=== PATIENT | male | born 1980 | race Two or more races ===

== ENCOUNTER 2020-09-24 09:05 | Emergency (ER) | payer BC ==
[~2020-09-24] VITALS: Ht 170.2 cm; Wt 86.2 kg
[2020-09-24 09:16] VITALS: BP 154/108
[2020-09-24] MEDS ORDERED: LIDOCAINE 1% HCL (LOCAL ANESTH.) INJ 20ML MDV IJ ONE (09:45)
[2020-09-24] MEDS ORDERED: TETANUS-DIPTH-ACEL PERTUSSIS 0.5ML SYR Tdap IM ONE (09:45)
== END 2020-09-24 10:12 | disposition home or self-care (01) ==
LOC: ER 09:05
DX: S61.412A Laceration without foreign body of left hand, initial encounter (principal); W22.8XXA Striking against or struck by other objects, initial encounter; Y93.89 Activity, other specified; Y92.89 Other specified places as the place of occurrence of the external cause; Y99.8 Other external cause status
CPT/HCPCS: 12002; 90471; 90715; 99283; J2001

== ENCOUNTER 2021-02-01 20:11 | Emergency (ER) | payer BC ==
[~2021-02-01] VITALS: Ht 170.2 cm; Wt 90.7 kg
[2021-02-01 21:59] LABS: Albumin 4.3 g/dL (3.4-5.0); Anion Gap 13 (5-15); Blood Urea Nitrogen 3 mg/dL (7-18); Calcium 8.9 mg/dL (8.5-10.1); Carbon Dioxide 24 mmol/L (21-32); Chloride 96 mmol/L (98-107); Glucose 123 mg/dL (74-106); Potassium 3.3 mmol/L (3.5-5.1); Sodium 133 mmol/L (136-145)
[2021-02-01 22:04] LABS: Alanine Aminotransferase 197 U/L (16-61); Alkaline Phosphatase 128 U/L (45-117); Aspartate Aminotransferase 246 U/L (15-37); BUN/Creatinine Ratio 4.1; Bilirubin, Total 1.2 mg/dL (0.2-1.0); GFR African American 151 mL/min; GFR Non-African American 125 mL/min; Total Protein 8.6 g/dL (6.4-8.2)
[2021-02-01 22:24] LABS: Basophils # (auto) 0.1 10 ^3/uL (0-0.2); Basophils % (auto) 1.2 % (0.0-2.0); Eosinophils # (auto) 0.1 10 ^3/uL (0-0.8); Eosinophils % (auto) 0.8 % (0.0-7.0); Hematocrit 45.4 % (41.0-53.0); Hemoglobin 16.3 g/dL (13.5-17.5); Lymphocytes # (auto) 2.3 10 ^3/uL (0.4-5.4); Lymphocytes % (auto) 33.8 % (10.0-50.0); Mean Corpuscular Hemoglobin 35.5 pg (28.0-32.0); Mean Corpuscular Hgb Conc. 35.8 g/dL (32.0-36.0); Mean Corpuscular Volume 99.2 fL (80.0-100.0); Monocytes # (auto) 0.6 10 ^3/uL (0-1.3); Neutrophils # (auto) 3.7 10 ^3/uL (1.6-8.6); Neutrophils % (auto) 55.2 % (37.0-80.0); Nucleated Red Blood Cells % 0.1 %; Platelet Count (auto) 279 10^3/uL (140-450); Red Blood Cells 4.58 10^6/uL (4.5-5.90); White Blood Cell 6.7 10^3/uL (4.4-10.8)
[2021-02-01 22:26] LABS: INR 1.08 (0.9-1.15); Partial Thromboplastin Time 27.2 sec (23.0-31.2)
[2021-02-02] MEDS ORDERED: POTASSIUM CHL 20 Meq TABLET PO ONE (02:15)
[2021-02-02 02:28] VITALS: BP 132/86
== END 2021-02-02 02:39 | disposition home or self-care (01) ==
LOC: ER 20:14
DX: R07.89 Other chest pain (principal); I10 Essential (primary) hypertension
CPT/HCPCS: 36415; 71046; 80053; 83880; 84443; 84484; 85025; 85610; 85730; 93005

== ENCOUNTER 2021-02-04 18:55 | Emergency (ER) | payer BC ==
[~2021-02-04] VITALS: Ht 170.2 cm; Wt 90.7 kg
[2021-02-04] MEDS ORDERED: THIAMINE INJ 100 MG in SODIUM CHLORIDE 0.9% 1,000 ML IV ONE (19:15)
[2021-02-04] MEDS ORDERED: LORazepam 2MG/ML-1ML VIAL IM ONE (19:15)
[2021-02-04 20:28] LABS: Basophils # (auto) 0.1 10 ^3/uL (0-0.2); Eosinophils # (auto) 0 10 ^3/uL (0-0.8); Lymphocytes # (auto) 2.3 10 ^3/uL (0.4-5.4); Mean Corpuscular Hemoglobin 36.2 pg (28.0-32.0); Mean Corpuscular Hgb Conc. 35.8 g/dL (32.0-36.0); Nucleated Red Blood Cells % 0.1 %; White Blood Cell 7.9 10^3/uL (4.4-10.8)
[2021-02-04 20:28] LABS: Urine Bacteria NONE SEEN /hpf (None Seen); Urine Blood Negative /uL (Negative); Urine Specific Gravity 1.002 (1.001-1.035); Urine WBC 1 /hpf (0 - 3)
[2021-02-04 20:30] LABS: Basophils % (auto) 1.1 % (0.0-2.0); Eosinophils % (auto) 0.6 % (0.0-7.0); Hematocrit 43.1 % (41.0-53.0); Hemoglobin 15.4 g/dL (13.5-17.5); Lymphocytes % (auto) 29.4 % (10.0-50.0); Monocytes # (auto) 1.1 10 ^3/uL (0-1.3); Monocytes % (auto) 13.8 % (0.0-12.0); Neutrophils # (auto) 4.4 10 ^3/uL (1.6-8.6); Neutrophils % (auto) 55.1 % (37.0-80.0); Platelet Count (auto) 250 10^3/uL (140-450); Red Blood Cells 4.26 10^6/uL (4.5-5.90); Red Cell Distribution Width 12.9 % (11.8-14.3)
[2021-02-04 20:42] LABS: INR 1.07 (0.9-1.15); Partial Thromboplastin Time 26.2 sec (23.0-31.2)
[2021-02-04 20:43] LABS: Calcium 9.6 mg/dL (8.5-10.1); Chloride 92 mmol/L (98-107); Sodium 131 mmol/L (136-145)
[2021-02-04 20:50] LABS: Alanine Aminotransferase 175 U/L (16-61); Albumin 4.3 g/dL (3.4-5.0); Alkaline Phosphatase 135 U/L (45-117); Amylase 50 U/L (25-115); Anion Gap 11 (5-15); Aspartate Aminotransferase 217 U/L (15-37); BUN/Creatinine Ratio 4.2; Blood Urea Nitrogen 3 mg/dL (7-18); Carbon Dioxide 28 mmol/L (21-32); GFR African American 158 mL/min; GFR Non-African American 131 mL/min; Glucose 88 mg/dL (74-106); Lipase 136 U/L (73-393); Magnesium 2.5 mg/dL (1.6-2.6)
[2021-02-04 20:55] LABS: Potassium 2.9 mmol/L (3.5-5.1)
[2021-02-04] MEDS ORDERED: ONDANSETRON HCL 4 MG/2 ML VIAL IV ONE (21:15)
[2021-02-04] MEDS ORDERED: POTASSIUM EFFERVESENT TAB 25 MEQ PO ONE (21:15)
[2021-02-04] MEDS ORDERED: POTASSIUM CHL 20MEQ/100ML 100 ML IV ONE (21:15)
[2021-02-04 23:59] VITALS: BP 139/98
== END 2021-02-05 00:07 | disposition home or self-care (01) ==
LOC: ER 18:55 → TELE 18:56 → UNDOADMIN 18:56 → ER 02-05 00:07
DX: K70.30 Alcoholic cirrhosis of liver without ascites (principal); F10.231 Alcohol dependence with withdrawal delirium; E87.6 Hypokalemia; R42 Dizziness and giddiness; Y90.8 Blood alcohol level of 240 mg/100 ml or more
CPT/HCPCS: 36415; 74176; 76705; 80053; 80320; 81001; 82150; 83690; 83735; 84484; 85025; 85610; 85730; 93005; 96365; 96366; 96368; 96372; 96375; 99285; J2060; J2405; J3411; J3480; J7030

== ENCOUNTER 2022-02-17 20:03 | Emergency (ER) | payer BC ==
[~2022-02-17] VITALS: Ht 167.6 cm; Wt 83.9 kg
[2022-02-17] MEDS ORDERED: SODIUM CHLORIDE 0.9% 1,000 ML IV ONE (20:30)
[2022-02-17] MEDS ORDERED: ONDANSETRON HCL 4 MG/2 ML VIAL IV ONE (20:45)
[2022-02-17] MEDS ORDERED: diazePAM 5 MG TAB PO ONE (20:45)
[2022-02-17 22:21] LABS: Urine Bacteria NONE SEEN /hpf (None Seen); Urine Blood Negative /uL (Negative); Urine Specific Gravity 1.002 (1.001-1.035); Urine WBC <1 /hpf (0 - 3)
[2022-02-17 22:36] LABS: Albumin 4.3 g/dL (3.4-5.0); Calcium 9.7 mg/dL (8.5-10.1); Magnesium 2.6 mg/dL (1.6-2.6); Potassium 4.4 mmol/L (3.5-5.1)
[2022-02-17 22:39] LABS: BUN/Creatinine Ratio 4.9; INR 1.16 (0.9-1.15); Partial Thromboplastin Time 28.7 sec (23.6-33.0); Total Protein 9.2 g/dL (6.4-8.2)
[2022-02-17 23:14] LABS: Basophils # (auto) 0.1 10 ^3/uL (0-0.2); Basophils % (auto) 1.1 % (0.0-2.0); Eosinophils # (auto) 0.2 10 ^3/uL (0-0.8); Eosinophils % (auto) 2.2 % (0.0-7.0); Hematocrit 50.9 % (41.0-53.0); Hemoglobin 17.9 g/dL (13.5-17.5); Lymphocytes # (auto) 3.8 10 ^3/uL (0.4-5.4); Lymphocytes % (auto) 37.2 % (10.0-50.0); Mean Corpuscular Hemoglobin 34.7 pg (28.0-32.0); Mean Corpuscular Hgb Conc. 35.2 g/dL (32.0-36.0); Mean Corpuscular Volume 98.6 fL (80.0-100.0); Monocytes # (auto) 1.1 10 ^3/uL (0-1.3); Monocytes % (auto) 10.8 % (0.0-12.0); Neutrophils % (auto) 48.7 % (37.0-80.0); Nucleated Red Blood Cells % 0.1 %; Red Blood Cells 5.16 10^6/uL (4.5-5.90); Red Cell Distribution Width 12.3 % (11.8-14.3); White Blood Cell 10.2 10^3/uL (4.4-10.8)
[2022-02-17] MEDS ORDERED: ONDA-144 PO (23:58)
[2022-02-18] MEDS ORDERED: diazePAM 5 MG TAB PO ONE
[2022-02-18 00:58] VITALS: BP 135/76
== END 2022-02-18 01:01 | disposition home or self-care (01) ==
LOC: ER 20:06
DX: K29.20 Alcoholic gastritis without bleeding (principal); K22.6 Gastro-esophageal laceration-hemorrhage syndrome; F10.10 Alcohol abuse, uncomplicated; I10 Essential (primary) hypertension; Y90.9 Presence of alcohol in blood, level not specified
CPT/HCPCS: 36415; 80053; 81001; 83690; 83735; 84484; 85025; 85610; 85730; 93005; 96361; 96374; 99285; J2405; J7030

== ENCOUNTER 2023-11-08 03:06 | Inpatient (IN) | payer BC, OTHER ==
[~2023-11-08] VITALS: Ht 170.2 cm; Wt 91.5 kg
[2023-11-08] VITALS (7 sets, daily range): BP systolic 135; BP diastolic 97; PULSE 94–117; RESP 12–28; O2SAT 16–98
[~2023-11-08 03:06] MED LIST: ONDA-144 PO
[2023-11-08 03:36] LABS: Basophils # (auto) 0.1 10 ^3/uL (0-0.2); Basophils % (auto) 1.1 % (0.0-2.0); Eosinophils # (auto) 0.1 10 ^3/uL (0-0.8); Eosinophils % (auto) 1.7 % (0.0-7.0); Hematocrit 41.7 % (41.0-53.0); Hemoglobin 13.8 g/dL (13.5-17.5); Lymphocytes # (auto) 2.2 10 ^3/uL (0.4-5.4); Lymphocytes % (auto) 29.6 % (10.0-50.0); Mean Corpuscular Hemoglobin 33.2 pg (28.0-32.0); Mean Corpuscular Hgb Conc. 33.2 g/dL (32.0-36.0); Monocytes # (auto) 0.7 10 ^3/uL (0-1.3); Monocytes % (auto) 9.1 % (0.0-12.0); Neutrophils # (auto) 4.4 10 ^3/uL (1.6-8.6); Neutrophils % (auto) 58.5 % (37.0-80.0); Red Blood Cells 4.17 10^6/uL (4.5-5.90); Red Cell Distribution Width 12.8 % (11.8-14.3); White Blood Cell 7.6 10^3/uL (4.4-10.8)
[2023-11-08] MEDS ORDERED: LORazepam 2MG/ML-1ML VIAL IV ONE (03:45)
[2023-11-08] MEDS ORDERED: LABETALOL HCL 5 MG/ML 4ML SYRINGE IV ONE ×2 (03:45→06:00)
[2023-11-08 03:50] LABS: Alanine Aminotransferase 67 U/L (7-40); Albumin 4.5 g/dL (3.2-4.8); Alkaline Phosphatase 90 U/L (46-116); Anion Gap 7 (5-15); Aspartate Aminotransferase 52 U/L (13-40); Blood Urea Nitrogen 6 mg/dL (9-23); Calcium 9.7 mg/dL (8.5-10.1); Carbon Dioxide 27 mmol/L (20-30); Chloride 103 mmol/L (98-107); Glucose 128 mg/dL (74-106); Potassium 4.2 mmol/L (3.5-5.1); Sodium 137 mmol/L (136-145)
[2023-11-08 03:51] LABS: Bilirubin, Total 1.3 mg/dL (0.2-1.0); Total Protein 7.5 g/dL (5.7-8.2)
[2023-11-08] MEDS ORDERED: HYDROcodone-ACET 5/325MG TAB PO PRN (07:30)
[2023-11-08] MEDS ORDERED: MORPHINE SULFATE INJ 2 MG/ml SYRG IV PRN (07:30)
[2023-11-08] MEDS ORDERED: NITROGLYCERIN 0.4 MG SL TAB SL PRN (07:30)
[2023-11-08] MEDS ORDERED: hydrALAZINE HCL 20 MG/ML VL IV PRN (07:30)
[2023-11-08] MEDS: THIAMINE 100mg/ml INJ (200mg/2ml VIAL) IV SCH ×2 (08:01→12:48)
[2023-11-08] MEDS: FOLIC ACID 1 MG in D5W 5% 50 ML INJ SCH ×2 (08:01→12:47)
[2023-11-08] MEDS: ALBUTEROL SULF 2.5 MG/0.5ML(0.5%) NEB SOLN NEB PRN ×2 (09:29→20:48)
[2023-11-08] MEDS: METOPROLOL TARTRATE 25 MG TAB PO SCH ×2 (10:16→22:00)
[2023-11-08] MEDS: FUROSEMIDE 20 MG/2 ML VIAL IV SCH (10:17)
[2023-11-08] MEDS: LISINOPRIL 5 MG TAB PO SCH (10:17)
[2023-11-08 13:05] LABS: Urine WBC None Seen /hpf (0 - 3)
[2023-11-08 13:30] LABS: Urine Bacteria NONE SEEN /hpf (None Seen); Urine Blood Negative /uL (Negative); Urine Clarity Clear (Clear); Urine Hyaline Cast FEW /lpf (0 - 2); Urine Protein, UAD Negative (Negative); Urine Specific Gravity 1.005 (1.001-1.035); Urine Urobilinogen Normal (Negative)
[2023-11-08 13:31] LABS: Urine Color Straw (Yellow)
[2023-11-08] MEDS: GABAPENTIN 100 MG CAP PO SCH ×2 (14:07→22:30)
[2023-11-08] MEDS ORDERED: diphenhdrAMINE HCL 12.5 MG/5 ML UD PO ONE (21:45)
[2023-11-09] VITALS (11 sets, daily range): BP systolic 108–146; BP diastolic 81–106; PULSE 48–104; RESP 16–18; TEMP 97.1–98.2; O2SAT 94–100
[2023-11-09] MEDS: GABAPENTIN 100 MG CAP PO SCH ×2 (06:30→14:47)
[2023-11-09] MEDS: THIAMINE 100mg/ml INJ (200mg/2ml VIAL) IV SCH (09:59)
[2023-11-09] MEDS: METOPROLOL TARTRATE 25 MG TAB PO SCH (09:59)
[2023-11-09] MEDS: LISINOPRIL 5 MG TAB PO SCH (10:00)
[2023-11-09] MEDS: FUROSEMIDE 20 MG/2 ML VIAL IV SCH (10:00)
[2023-11-09] MEDS: FOLIC ACID 1 MG in D5W 5% 50 ML INJ SCH (10:00)
[2023-11-09] MEDS ORDERED: MET25T PO (17:42)
[2023-11-09] MEDS ORDERED: LISI-275 PO (17:42)
[2023-11-09] MEDS ORDERED: GAB100C PO (17:42)
[2023-11-09] MEDS ORDERED: THIA100T10 PO (17:42)
[2023-11-09] MEDS ORDERED: FURO1TAB33 PO (17:42)
[2023-11-09] MEDS ORDERED: FOLI-119 PO (17:42)
== END 2023-11-09 19:49 | disposition home health service (06) | DRG 292 ==
LOC: ER 03:06 → TELE 07:26 → TELE-EAST 23:48
PROVIDERS: ADMIT Internal Medicine; ATTEND Internal Medicine
DX: I11.0 Hypertensive heart disease with heart failure (principal); F15.20 Other stimulant dependence, uncomplicated; I43 Cardiomyopathy in diseases classified elsewhere; I50.9 Heart failure, unspecified; F10.20 Alcohol dependence, uncomplicated; Z91.148 Patient's other noncompliance with medication regimen for other reason
CPT/HCPCS: 36415; 71045; 80053; 81001; 83880; 84484; 85025; 93005; 93306; 94640; 96374; 96375; 99291; G0378; J3490; J7060

== ENCOUNTER 2025-09-17 05:02 | Emergency (ER) | payer OTHER ==
[~2025-09-17] VITALS: Ht 170.2 cm; Wt 101.7 kg
[~2025-09-17 05:02] MED LIST changes: +FOLI-119 PO; +FURO1TAB33 PO; +GAB100C PO; +LISI-275 PO; +MET25T PO; -ONDA-144 PO; +THIA100T10 PO
[2025-09-17] MEDS: OXYMETAZOLINE HCL 0.05 % NASAL SPRAY 15ML EACHNOSTRI ONE (05:25)
--- NOTE | 2025-09-17 05:40 | ED.PDOC ---
Epistaxis- HPI HPI Comments 44-year-old male with a past medical history of hypertension, noncompliant to medication for the past 6 months has come to the ER with complaints of nosebleed. Patient reports that an hour ago he woke up with his left nostril bleeding which was continuous, nonpainful, requiring half roll of toilet paper that he put up his nose to control the bleed. Patient also pinched his nasal bridge which helped slow down the bleeding, but since it was continuous he decided to visit the ER. Patient denies any trauma to the nose, nasal picking, dryness, shortness of breath, cough, chest pain, sinus pain or any other symptoms. His reports he has been drinking a lot of cinnamon lemon tea. On inquiry why the patient has not been taking blood pressure medications, he states that he has been feeling good and decided to stop medication. He has not measured his blood pressure recently. On initial assessment, there was continues bleeding from the left nostril and slight bleeding from the right and nasal packing was done. Initial vitals show hypertensive urgency with BP 199/138 mmHg, HR 108, temp 97.3 and RR 19. Up to 1 dose of clonidine 0.2 mg blood pressure decreased and in 2 hours time it was 147/94 mm Hg. Nasal bleeding also stopped. Chief Complaint: Nose Bleed Time Seen by MD: 05:13 Primary Care Provider: Dr. Perry Allergies: Coded Allergies: NO KNOWN ALLERGIES (Unverified , 06/22/14) Home Meds Active Scripts Furosemide (Lasix) 20 Mg Tb, 20 MG PO DAILY, #30 TAB Prov:CHERYL BIRMINGHAM MD 11/09/23 Folic Acid (Folic Acid) 1 Mg Tab, 1 MG PO DAILY, #30 TAB Prov:CHERYL BIRMINGHAM MD 11/09/23 Thiamine Hcl (VITAMIN B-1) 100 Mg Tb, 100 MG PO DAILY, #30 TAB Prov:CHERYL BIRMINGHAM MD 11/09/23 Metoprolol Tartrate (Lopressor) 25 Mg Tb, 25 MG PO BID, #60 TAB Prov:CHERYL BIRMINGHAM MD 11/09/23 Lisinopril (Lisinopril) 5 Mg Tab, 2.5 MG PO DAILY, #15 TAB Prov:CHERYL BIRMINGHAM MD 11/09/23 Gabapentin (Gabapentin) 100 Mg Cap, 100 MG PO TID, #21 CAP Prov:CHERYL BIRMINGHAM MD 11/09/23 Information Source: Patient Mode of Arrival: Ambulatory Severity: Bleeding Uncontrolled Timing: Hours Duration: Since onset Prehospital treatment: None Location: Left naris Mechanism: Spontaneous onset Circumstances: Other (While sleeping) Use of: None History of: HTN Last Tetanus: >5 years Nose: Normal Nose: Intranasal/Septum: Blood Bleeding Status: Active bleeding Bleeding Amount: Moderate Source: Left Associated signs and symptoms: None Past Medical History PAST MEDICAL HISTORY: HTN Surgical History: Denies all surgeries Family History Family History: Reviewed,noncontributory to illness Social History Smoker: Non-Smoker Alcohol: Heavy Drugs: Denies Drug Use Lives In: Home Constitutional: denies: chills, diaphoresis, fatigue, fever, malaise, sweats, weakness, others EENTM: reports: nose bleeding; denies: blurred vision, double vision, ear bleeding, ear discharge, ear drainage, ear pain, ear ringing, eye pain, eye redness, hearing loss, mouth pain, mouth swelling, nasal discharge, nose congestion, nose pain, photophobia, tearing, throat pain, throat swelling, voice changes, others Respiratory: denies: cough, hemoptysis, orthopnea, SOB at rest, shortness of breath, SOB with excertion, stridor, wheezing, others Cardiovascular: denies: chest pain, dizzy spells, diaphoresis, Dyspnea on exertion, edema, irregular heart beat, left arm pain, lightheadedness, palpitations, PND, syncope, others Gastrointestinal: denies: abdomen distended, abdominal pain, blood streaked bowels, constipated, diarrhea, dysphagia, difficulty swallowing, hematemesis, melena, nausea, poor appetite, poor fluid intake, rectal bleeding, rectal pain, vomiting, others Genitourinary: denies: burning, dysuria, flank pain, frequency, hematuria, incontinence, penile discharge, penile sore, pain, testicle pain, testicle swelling, urgency, others Neurological: denies: dizziness, fainting, headache, left sided numbness, left sided weakness, numbness, paresthesia, pre-existing deficit, right sided numbness, right sided weakness, seizure, speech problems, tingling, tremors, we akness, others Musculoskeletal: denies: back pain, gout, joint pain, joint swelling, muscle pain, muscle stiffness, neck pain, others Integumetry: denies: bruises, change in color, change in hair/nails, dryness, laceration, lesions, lumps, rash, wounds, others Allergic/Immunocompromised: denies: Difficulty Healing, Frequent Infections, Hives, Itching, others Hematologic/Lymphatic: denies: anemia, blood clots, easy bleeding, easy bruising, swollen glands, others Endocrine: denies: excessive hunger, excessive sweating, excessive thirst, excessive urination, flushing, intolerance to cold, intolerance to heat, unexplained weight gain, unexplained weight loss, others Psychiatric: denies: anxiety, bipolar disorder, depression, hopeless, panic disorder, schizophrenia, sleepless, suicidal, others Physical Exam General Appearance: Obese HEENT: None Neck: Non-Tender, Normal, Normal Inspection Respiratory: None, Normal Breath Sounds Cardiovascular: None Breast Exam: Deferred Gastrointestinal: Normal Bowel Sounds Genitalia: Deferred Pelvic: Deferred Rectal: Deferred Extremities: None Neurologic: None Cerebellar Function: Normal Reflexes: Normal Skin: Normal Color Lymphatic: None Was a procedure done? Was a procedure done?: No Differential Diagnosis (NSB) Differential Diagnosis: Anterior Nasal Bleed, Hypertension X-Ray, Labs, Meds, VS Vital Signs Date Time Temp Pulse Resp B/P (MAP) Pulse Ox O2 Delivery O2 Flow Rate FiO2 09/17/25 07:35 92 17 98 09/17/25 07:35 95 18 98 Room Air* 0 21 09/17/25 06:34 85 09/17/25 05:45 97.8 95 18 197/124 (148) 98 97.8 09/17/25 05:45 95 18 98 Room Air* 0 21 09/17/25 05:26 197/124 09/17/25 05:04 97.3 108 19 199/138 98 97.3 Lab Test 09/17/25 05:25 Range/Units White Blood Count 6.5 4.4-10.8 10^3/uL Red Blood Count 4.42 L 4.5-5.90 10^6/uL Hemoglobin 16.0 13.5-17.5 g/dL Hematocrit 45.1 41.0-53.0 % Mean Corpuscular Volume 102.1 H 80.0-100.0 fL Mean Corpuscular Hemoglobin 36.1 H 28.0-32.0 pg Mean Corpuscular Hemoglobin Concent 35.4 32.0-36.0 g/dL Red Cell Distribution Width 13.2 11.8-14.3 % Platelet Count 139 L 140-450 10^3/uL Mean Platelet Volume 10.0 6.9-10.8 fL Neutrophils (%) (Auto) 39.6 37.0-80.0 % Lymphocytes (%) (Auto) 41.5 10.0-50.0 % Monocytes (%) (Auto) 12.5 H 0.0-12.0 % Eosinophils (%) (Auto) 4.2 0.0-7.0 % Basophils (%) (Auto) 2.2 H 0.0-2.0 % Neutrophils # (Auto) 2.6 1.6-8.6 10 ^3/uL Lymphocytes # (Auto) 2.7 0.4-5.4 10 ^3/uL Monocytes # (Auto) 0.8 0-1.3 10 ^3/uL Eosinophils # (Auto) 0.3 0-0.8 10 ^3/uL Basophils # (Auto) 0.1 0-0.2 10 ^3/uL Nucleated Red Blood Cells 0.2 % Sodium Level 142 136-145 mmol/L Potassium Level 3.4 L 3.5-5.1 mmol/L Chloride Level 106 98-107 mmol/L Carbon Dioxide Level 24 20-31 mmol/L Anion Gap 12 5-15 Blood Urea Nitrogen < 5 L 9-23 mg/dL Creatinine 0.61 L 0.700-1.30 mg/dL Glomerular Filtration Rate Calc 121 >90 mL/min BUN/Creatinine Ratio 8.2 L 10.0-20.0 Serum Glucose 137 H 74-106 mg/dL Calcium Level 8.7 8.7-10.4 mg/dL Current Medications Medications (Trade) Dose Ordered Sig/Sean Route Start Time Stop Time Status Last Admin Clonidine HCl (Catapres Tablet) 0.2 mg ONCE ONCE PO 09/17/25 05:15 09/17/25 05:16 DC 09/17/25 05:26 Oxymetazoline HCl (Afrin) 1 spr ONCE ONCE EACHNOSTRI 09/17/25 05:15 09/17/25 05:16 DC 09/17/25 05:25 Time of 1ST Reevaluation: 06:20 Reevaluation 1ST: Unchanged Time of 2ND Reevaluation: 07:22 Reevaluation 2ND: Resolved Patient Education/Counseling: Diagnosis, Treatment Family Education/Counseling: Diagnosis, Treatment Departure 1 Departure Time of Disposition: 07:25 Impression: Primary Impression: Epistaxis Additional Impression: Hypertensive urgency Disposition: 01 HOME / SELF CARE / HOMELESS Condition: Stable Comments Attestation: I saw and evaluated the patient. I agree with the findings and plan of care as documented by the resident note. NYDIA HARPER MD Critical Care Note Critical Care Time?: No Stability Stability form required: No Heart Score Heart Score: Heart Score Response (Comments) Value History N/A 0 EKG N/A 0 Age N/A 0 Risk Factors N/A 0 Troponin N/A 0 Total 0 LETICIA RILEY RESIDENT Sep 17, 2025 05:40 NYDIA HARPER MD Sep 17, 2025 22:25
[2025-09-17 05:45] VITALS: BP 197/124; PULSE 95; RESP 18; TEMP 97.8; O2SAT 98
[2025-09-17] MEDS: LIDOCAINE W/ EPINEPHRINE 2% INJ 20ML VIAL ID ONE (05:45)
[2025-09-17 05:59] LABS: Hematocrit 45.1 % (41.0-53.0); Hemoglobin 16.0 g/dL (13.5-17.5); Mean Corpuscular Hemoglobin 36.1 pg (28.0-32.0); Mean Corpuscular Volume 102.1 fL (80.0-100.0); Nucleated Red Blood Cells % 0.2 %
[2025-09-17] MEDS ORDERED: LABETALOL HCL 20 MG/4 ML VL IV ONE ×2 (06:00→06:15)
--- NOTE | 2025-09-17 06:36 | ECG ---
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
[2025-09-17 06:44] LABS: Chloride 106 mmol/L (98-107); Sodium 142 mmol/L (136-145)
[2025-09-17 06:45] LABS: Anion Gap 12 (5-15); Calcium 8.7 mg/dL (8.7-10.4); Carbon Dioxide 24 mmol/L (20-31); Potassium 3.4 mmol/L (3.5-5.1)
[2025-09-17] MEDS: LABETALOL HCL 20 MG/4 ML VL IV ONE (06:46)
[2025-09-17 06:50] LABS: BUN/Creatinine Ratio 8.2 (10.0-20.0); Blood Urea Nitrogen < 5 mg/dL (9-23); Glucose 137 mg/dL (74-106)
[2025-09-17 07:35] VITALS: PULSE 95; RESP 18; O2SAT 98
== END 2025-09-17 08:06 | disposition home or self-care (01) ==
LOC: ER 05:02
DX: R04.0 Epistaxis (principal); I16.0 Hypertensive urgency; I10 Essential (primary) hypertension; Z79.899 Other long term (current) drug therapy
CPT/HCPCS: 36415; 80048; 85025; 93005

== ENCOUNTER 2025-09-17 09:20 | Emergency (ER) | payer OTHER ==
[~2025-09-17] VITALS: Ht 170.2 cm; Wt 72.2 kg
[2025-09-17 09:21] VITALS: TEMP 98
[2025-09-17 09:40] VITALS: PULSE 110; RESP 31; O2SAT 98
--- NOTE | 2025-09-17 09:42 | ED.PDOC ---
Epistaxis- HPI HPI Comments This is a 44 year old male presenting to the ED with chief complaint of epistaxis. Patient reports he was seen in [facility] a few hours ago for the same complaint of bilateral epistaxis. Patient relays that his bleeding was stopped in the ED, however, it had started again while at home. Patient denies any fall, headache, N/V, or dizziness. Chief Complaint: Nose Bleed Time Seen by MD: 09:39 Primary Care Provider: Dr. Perry Reviewed Notes: Nurses Notes, Medications, Allergies Allergies: Coded Allergies: NO KNOWN ALLERGIES (Unverified , 06/22/14) Home Meds Active Scripts Furosemide (Lasix) 20 Mg Tb, 20 MG PO DAILY, #30 TAB Prov:CHERYL BIRMINGHAM MD 11/09/23 Folic Acid (Folic Acid) 1 Mg Tab, 1 MG PO DAILY, #30 TAB Prov:CHERYL BIRMINGHAM MD 11/09/23 Thiamine Hcl (VITAMIN B-1) 100 Mg Tb, 100 MG PO DAILY, #30 TAB Prov:CHERYL BIRMINGHAM MD 11/09/23 Metoprolol Tartrate (Lopressor) 25 Mg Tb, 25 MG PO BID, #60 TAB Prov:CHERYL BIRMINGHAM MD 11/09/23 Lisinopril (Lisinopril) 5 Mg Tab, 2.5 MG PO DAILY, #15 TAB Prov:CHERYL BIRMINGHAM MD 11/09/23 Gabapentin (Gabapentin) 100 Mg Cap, 100 MG PO TID, #21 CAP Prov:CHERYL BIRMINGHAM MD 11/09/23 Information Source: Patient Mode of Arrival: Ambulatory Severity: # Tsp., Bleeding Uncontrolled Timing: Hours Duration: Since onset Prehospital treatment: None Location: Both narises Mechanism: Spontaneous onset Use of: None History of: HTN Last Tetanus: Unknown Nose: Intranasal/Septum: Blood Bleeding Status: Active bleeding Bleeding Amount: Mild Source: Both Past Medical History PAST MEDICAL HISTORY: HTN Surgical History: Denies all surgeries Family History Family History: Reviewed,noncontributory to illness Social History Smoker: Non-Smoker Alcohol: Heavy Drugs: Denies Drug Use Lives In: Home Constitutional: denies: chills, diaphoresis, fatigue, fever, malaise, sweats, weakness, others EENTM: reports: nose bleeding; denies: blurred vision, double vision, ear bleeding, ear discharge, ear drainage, ear pain, ear ringing, eye pain, eye redness, hearing loss, mouth pain, mouth swelling, nasal discharge, nose congestion, nose pain, photophobia, tearing, throat pain, throat swelling, voice changes, others Respiratory: denies: cough, hemoptysis, orthopnea, SOB at rest, shortness of breath, SOB with excertion, stridor, wheezing, others Cardiovascular: denies: chest pain, dizzy spells, diaphoresis, Dyspnea on exertion, edema, irregular heart beat, left arm pain, lightheadedness, palpitations, PND, syncope, others Gastrointestinal: denies: abdomen distended, abdominal pain, blood streaked bowels, constipated, diarrhea, dysphagia, difficulty swallowing, hematemesis, melena, nausea, poor appetite, poor fluid intake, rectal bleeding, rectal pain, vomiting, others Genitourinary: denies: burning, dysuria, flank pain, frequency, hematuria, incontinence, penile discharge, penile sore, pain, testicle pain, testicle swelling, urgency, others Neurological: denies: dizziness, fainting, headache, left sided numbness, left sided weakness, numbness, paresthesia, pre-existing deficit, right sided numbness, right sided weakness, seizure, speech problems, tingling, tremors, weakness, others Musculoskeletal: denies: back pain, gout, joint pain, joint swelling, muscle pain, muscle stiffness, neck pain, others Integumetry: denies: bruises, change in color, change in hair/nails, dryness, laceration, lesions, lumps, rash, wounds, others Allergic/Immunocompromised: denies: Difficulty Healing, Frequent Infections, Hives, Itching, others Hematologic/Lymphatic: denies: anemia, blood clots, easy bleeding, easy bruising, swollen glands, others Endocrine: denies: excessive hunger, excessive sweating, excessive thirst, excessive urination, flushing, intolerance to cold, intolerance to heat, unexp lained weight gain, unexplained weight loss, others Psychiatric: denies: anxiety, bipolar disorder, depression, hopeless, panic disorder, schizophrenia, sleepless, suicidal, others All Other Systems: Reviewed and Negative Physical Exam General Appearance: No Apparent Distress, Normal HEENT: Normal ENT Inspection, Pharynx Normal, TMs Normal, Other (Bilateral epistaxis) Neck: Full Range of Motion, Non-Tender, Normal, Normal Inspection Respiratory: Chest Non-Tender, Lungs Clear, No Accessory Muscle Use, No Respiratory Distress, Normal Breath Sounds Cardiovascular: No Edema, No JVD, No Murmur, No Gallop, Normal Peripheral Pulses, Regular Rate/Rhythm Breast Exam: Deferred Gastrointestinal: No Organomegaly, Non Tender, No Pulsatile Mass, Normal Bowel Sounds, Soft Genitalia: Deferred Pelvic: Deferred Rectal: Deferred Extremities: No calf tenderness, Normal capillary refill, Normal inspection, Normal range of motion, Non-tender, No pedal edema Musculoskeletal : Apperance: Normal Neurologic: Alert, manager of merchandising II-XII nml as Tested, No Motor Deficits, Normal Affect, Normal Mood, No Sensory Deficits Cerebellar Function: Normal Reflexes: Normal Skin: Dry, Normal Color, Warm Lymphatic: No Adenopathy Was a procedure done? Was a procedure done?: Yes Sedation Sedation?: No Nasal Cautery and Pack Indicaton: Anterior epitaxis Silver nitrate: Bilateral Hemostasis: Was not obtained Location of packing: Bilateral Packing: Inflatable balloon Informed consent obtained: Yes Risks/benefits/alt described: Yes Differential Diagnosis (NSB) Differential Diagnosis: Anterior Nasal Bleed, Posterior Nasal Bleed, H ypertension X-Ray, Labs, Meds, VS Vital Signs Date Time Temp Pulse Resp B/P (MAP) Pulse Ox O2 Delivery O2 Flow Rate FiO2 09/17/25 09:40 110 31 173/111 (131) 98 09/17/25 09:40 110 31 98 Room Air* 0 21 09/17/25 09:21 98.0 115 15 185/123 97 98.0 Current Medications Medications (Trade) Dose Ordered Sig/Sean Route Start Time Stop Time Status Last Admin Oxymetazoline HCl (Afrin) 1 spr ONCE ONCE EACHNOSTRI 09/17/25 09:45 09/17/25 09:46 DC 09/17/25 10:12 Time of 1ST Reevaluation: 10:38 Reevaluation 1ST: Improved Patient Education/Counseling: Diagnosis, Treatment Family Education/Counseling: Diagnosis, Treatment Departure 1 Departure Time of Disposition: 13:08 (Patient has bilateral nasal packing. We will discharge patient home with the ENT follow up) Impression: Primary Impression: Epistaxis Disposition: 01 HOME / SELF CARE / HOMELESS Condition: Stable Additional Instructions: You have a rhino rocket in both nostrils. Please follow up with ENT this week. Please call [place] [id number] [address] If your symptoms worsen or you have any other concerns or you can not see the ENT then please return here Discharged With: Self Critical Care Note Critical Care Time?: No Stability Stability form required: No Heart Score Heart Score: Heart Score Response (Comments) Value History N/A 0 EKG N/A 0 Age N/A 0 Risk Factors N/A 0 Troponin N/A 0 Total 0 I personally scribed for IZZY LAGUNAS MD ([email or web address]) on 09/17/25 at 09:42. Electronically submitted by Herman Campbell ([email or web address]). I personally scribed for IZZY LAGUNAS MD ([email or web address]) on 09/17/25 at 09:58. Electronically submitted by Herman Campbell ([email or web address]). IZZY LAGUNAS MD Sep 17, 2025 09:42
[2025-09-17] MEDS: OXYMETAZOLINE HCL 0.05 % NASAL SPRAY 15ML EACHNOSTRI ONE (10:12)
[2025-09-17] MEDS: TRANEXAMIC ACID 10 ML ONE (12:10)
[2025-09-17 13:00] VITALS: BP 148/101
[2025-09-17 13:09] VITALS: PULSE 98; RESP 20; O2SAT 99
== END 2025-09-17 13:14 | disposition home or self-care (01) ==
LOC: ER 09:20
DX: R04.0 Epistaxis (principal); I10 Essential (primary) hypertension; Z79.899 Other long term (current) drug therapy
CPT/HCPCS: 30901

== ENCOUNTER 2025-09-20 11:17 | Emergency (ER) | payer OTHER ==
[~2025-09-20] VITALS: Ht 170.2 cm; Wt 102.8 kg
--- NOTE | 2025-09-20 11:33 | ECG ---
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
--- NOTE | 2025-09-20 13:12 | ED.PDOC ---
Eye-HPI HPI Comments This is a 44 year-old male who presents to the ED for L naris rhino rocket removal. Patient reports having the Rhino Rocket in place as of Monday. Patient has no further complaints at this time. Chief Complaint: Wound Check Time Seen by MD: 13:03 Primary Care Provider: Dr. Perry Reviewed Notes: Nurses Notes, Allergies Allergies: Coded Allergies: NO KNOWN ALLERGIES (Unverified , 06/22/14) Home Meds Active Scripts Furosemide (Lasix) 20 Mg Tb, 20 MG PO DAILY, #30 TAB Prov:CHERYL BIRMINGHAM MD 11/09/23 Folic Acid (Folic Acid) 1 Mg Tab, 1 MG PO DAILY, #30 TAB Prov:CHERYL BIRMINGHAM MD 11/09/23 Thiamine Hcl (VITAMIN B-1) 100 Mg Tb, 100 MG PO DAILY, #30 TAB Prov:CHERYL BIRMINGHAM MD 11/09/23 Metoprolol Tartrate (Lopressor) 25 Mg Tb, 25 MG PO BID, #60 TAB Prov:CHERYL BIRMINGHAM MD 11/09/23 Lisinopril (Lisinopril) 5 Mg Tab, 2.5 MG PO DAILY, #15 TAB Prov:CHERYL BIRMINGHAM MD 11/09/23 Gabapentin (Gabapentin) 100 Mg Cap, 100 MG PO TID, #21 CAP Prov:CHERYL BIRMINGHAM MD 11/09/23 Information Source: Patient Mode of Arrival: Ambulatory Duration: Since onset Associated signs and symptoms: Other (Rhino Rocket Removal ) Past Medical History PAST MEDICAL HISTORY: HTN Surgical History: Denies all surgeries Family History Family History: Reviewed,noncontributory to illness Social History Smoker: Non-Smoker Alcohol: Heavy Drugs: Denies Drug Use Lives In: Home Constitutional: denies: chills, diaphoresis, fatigue, fever, malaise, sweats, weakness, others EENTM: denies: blurred vision, double vision, ear bleeding, ear discharge, ear drainage, ear pain, ear ringing, eye pain, eye redness, hearing loss, mouth pain, mouth swelling, nasal discharge, nose bleeding, nose congestion, nose pain, photophobia, tearing, throat pain, throat swelling, voice changes, others Respiratory: denies: cough, hemoptysis, orthopnea, SOB at rest, shortness of breath, SOB with excertion, stridor, wheezing, others Cardiovascular: denies: chest pain, dizzy spells, diaphoresis, Dyspnea on exertion, edema, irregular heart beat, left arm pain, lightheadedness, palpitations, PND, syncope, others Gastrointestinal: denies: abdomen distended, abdominal pain, blood streaked bowels, constipated, diarrhea, dysphagia, difficulty swallowing, hematemesis, melena, nausea, poor appetite, poor fluid intake, rectal bleeding, rectal pain, vomiting, others Genitourinary: denies: burning, dysuria, flank pain, frequency, hematuria, incontinence, penile discharge, penile sore, pain, testicle pain, testicle swelling, urgency, others Neurological: denies: dizziness, fainting, headache, left sided numbness, left sided weakness, numbness, paresthesia, pre-existing deficit, right sided numbness, right sided weakness, seizure, speech problems, tingling, tremors, weakness, others Musculoskeletal: denies: back pain, gout, joint pain, joint swelling, muscle pain, muscle stiffness, neck pain, others Integumetry: denies: bruises, change in color, change in hair/nails, dryness, laceration, lesions, lumps, rash, wounds, others Allergic/Immunocompromised: denies: Difficulty Healing, Frequent Infections, Hives, Itching, others Hematologic/Lymphatic: denies: anemia, blood clots, easy bleeding, easy bruising, swollen glands, others Endocrine: denies: excessive hunger, excessive sweating, excessive thirst, excessive urination, flushing, intolerance to cold, intolerance to heat, unexplained weight gain, unexplained weight loss, others Psychiatric: denies: anxiety, bipolar disorder, depression, hopeless, panic disorder, schizophrenia, sleepless, suicidal, others All Other Systems: Reviewed and Negative Physical Exam General Appearance: No Apparent Distress, Normal HEENT: Normal ENT Inspection, Pharynx Normal, TMs Normal Neck: Full Range of Motion, Non-Tender, Normal, Normal Inspection Respiratory: Chest Non-Tender, Lungs Clear, No Accessory Muscle Use, No Respiratory Distress, Normal Breath Sounds Cardiovascular: No Edema, No JVD, No Murmur, No Gallop, Normal Peripheral Pulses, Regular Rate/Rhythm Breast Exam: Deferred Gastrointestinal: No Organomegaly, Non Tender, No Pulsatile Mass, Normal Bowel Sounds, Soft Genitalia: Deferred Pelvic: Deferred Rectal: Deferred Extremities: No calf tenderness, Normal capillary refill, Normal inspection, Normal range of motion, Non-tender, No pedal edema Musculoskeletal : Apperance: Normal Neurologic: Alert, [place] sewer II-XII nml as Tested, No Motor Deficits, Normal Affect, Normal Mood, No Sensory Deficits Cerebellar Function: Normal Reflexes: Normal Skin: Dry, Normal Color, Warm Lymphatic: No Adenopathy Was a procedure done? Was a procedure done?: Yes Sedation Sedation?: No Other Procedure Procedure Rhino Rocket Removal from the L naris Success Yes Informed consent obtained: Yes Risks, benefits, and alternati: Yes EKG EKG : Pulse Rate (adult): 85 [place]: Normal Block: None Hypertrophy: None ST: Normal Comments Sinus rhythm Borderline prolonged OH interval Left atrial enlargement Incomplete right bundle branch block ST elev, probable normal early repol pattern EENT DIFF Eye: N/A Other Differential Diagnosis Wellness Check X-Ray, Labs, Meds, VS Vital Signs Date Time Temp Pulse Resp B/P (MAP) Pulse Ox O2 Delivery O2 Flow Rate FiO2 09/20/25 13:12 85 09/20/25 12:18 98.5 95 18 185/107 (133) 94 98.5 09/20/25 12:18 95 18 94 Room Air 09/20/25 12:10 185/107 09/20/25 11:32 85 09/20/25 11:19 98.1 89 14 192/119 98 98.1 Current Medications Medications (Trade) Dose Ordered Sig/Sean Route Start Time Stop Time Status Last Admin Clonidine HCl (Catapres Tablet) 0.1 mg ONCE ONCE PO 09/20/25 11:30 09/20/25 11:31 DC 09/20/25 12:10 Time of 1ST Reevaluation: 13:28 Reevaluation 1ST: Unchanged Patient Education/Counseling: Diagnosis, Treatment Family Education/Counseling: No Family Present SEPSIS Sepsis Screen Date sepsis recognized/suspect: Sep 20, 2025 Time Sepsis recognized/suspect: 1119 Recent Procedure: No On Antibiotic Therapy: No Respiratory Rate >20: No Heart Rate >90: No Temp<36 C (96.8 F) or >38.3 C: No SBP <90 or MAP <65 mmHG: No New Acute Mental Status Change: No Is the patient on CPAP, BIPAP,: No Vital Signs Date Time Temp Pulse Resp B/P (MAP) Pulse Ox O2 Delivery O2 Flow Rate FiO2 09/20/25 13:12 85 09/20/25 12:18 98.5 95 18 185/107 (133) 94 98.5 09/20/25 12:18 95 18 94 Room Air 09/20/25 12:10 185/107 09/20/25 11:32 85 09/20/25 11:19 98.1 89 14 192/119 98 98.1 Medications Medications Dose Ordered Sig/Sean Route Start Time Stop Time Status Last Admin Dose Admin Clonidine HCl 0.1 mg ONCE ONCE PO 09/20/25 11:30 09/20/25 11:31 DC 09/20/25 12:10 Departure 1 Departure Time of Disposition: 13:35 (I removed the patient's rhino rocket and started him on medications for hypertension.) Impression: Primary Impression: Essential hypertension Additional Impression: Encounter for removal of nasal packing Disposition: HOME / SELF CARE / HOMELESS Condition: Stable e-Prescriptions Amlodipine Besylate (NORVASC TABLET) 5 Mg Tb 1 TAB PO DAILY for 30 Days, #30 TAB 5 Refills Prov: IZZY LAGUNAS MD 09/20/25 Discharged With: Self Critical Care Note Critical Care Time?: No Stability Stability form required: No Heart Score Heart Score: Heart Score Response (Comments) Value History N/A 0 EKG N/A 0 Age N/A 0 Risk Factors N/A 0 Troponin N/A 0 Total 0 I personally scribed for IZZY LAGUNAS MD ([email or web address]) on 09/20/25 at 13:12. Electronically submitted by Vee Galeana ([facility]). IZZY LAGUNAS MD Sep 20, 2025 13:12
[2025-09-20] MEDS ORDERED: AML5T PO (13:36)
[2025-09-20 13:55] VITALS: BP 182/122; PULSE 89; RESP 16; TEMP 98.3; O2SAT 97
== END 2025-09-20 13:59 | disposition home or self-care (01) ==
LOC: ER 11:17
DX: I10 Essential (primary) hypertension (principal); Z79.899 Other long term (current) drug therapy; Z48.00 Encounter for change or removal of nonsurgical wound dressing
CPT/HCPCS: 93005